=== PATIENT | female | born 1940 | race Two or more races ===

== ENCOUNTER 2018-10-13 06:41 | Outpatient (CLI) | payer OTHER ==
[~2018-10-13 06:41] MED LIST: COZAAR50 MG
== END 2018-10-13 06:48 | disposition home or self-care (01) ==
LOC: LAB 06:41
DX: I10 Essential (primary) hypertension (principal); E78.2 Mixed hyperlipidemia; R31.29 Other microscopic hematuria; N39.0 Urinary tract infection, site not specified; B95.1 Streptococcus, group B, as the cause of diseases classified elsewhere

== ENCOUNTER 2018-11-04 08:57 | Outpatient (CLI) | payer OTHER | END 2018-11-04 09:03 | disposition home or self-care (01) | LOC: LAB 08:57 | DX: N39.0 Urinary tract infection, site not specified (principal) ==

== ENCOUNTER 2025-09-15 09:48 | Emergency (ER) | payer OTHER ==
[~2025-09-15] VITALS: Ht 152.4 cm; Wt 59.0 kg
[2025-09-15] MEDS ORDERED: SIMVASTATIN5 MG (09:56)
[2025-09-15] MEDS ORDERED: KETOROLAC TROMETHAMINE 30 MG VIAL IM STA (10:11)
[2025-09-15] MEDS ORDERED: DEXAMETHASONE SODIUM PHOSPHATE 4 MG/ML VIAL IM STA (10:11)
[2025-09-15] MEDS ORDERED: ORPHENADRINE CITRATE 30 MG/ML AMPUL IM STA (10:12)
[2025-09-15] MEDS ORDERED: KETOROLAC TROMETHAMINE 30 MG VIAL ONE (10:37)
[2025-09-15] MEDS ORDERED: ORPHENADRINE CITRATE 30 MG/ML AMPUL ONE (10:38)
[2025-09-15] MEDS ORDERED: DEXAMETHASONE SODIUM PHOSPHATE 4 MG/ML VIAL ONE (10:38)
== END 2025-09-15 10:52 | disposition home or self-care (01) ==
LOC: ER 09:49
DX: M25.561 Pain in right knee (principal)
CPT/HCPCS: 96372; 99282; J1100; J1885; J2360